=== PATIENT | female | born 1990 | race Caucasian/White ===

== ENCOUNTER 2017-07-02 18:00 | Emergency (ER) | payer OTHER ==
[2017-07-02 18:10] VITALS: BP 134/84; PULSE 84; TEMP 98.9; BMI 26.6
[2017-07-02] MEDS ORDERED: DEXAMETHASONE SOD PHOSPHATE 10 MG/1 ML VIAL IVPUSH ONE (18:35)
--- NOTE | 2017-07-02 18:35 | PDOC ---
History of Present Illness <Fany Waite - Last Filed: 07/02/17 18:33> - General History Source: Patient Exam Limitations: No Limitations - History of Present Illness Initial Comments: 07/02/17 18:37 The patient is a 26 year old female, with no significant past medical history, who presents to the emergency department with, 4 days of a sore throat, mild nonproductive cough, and fever. She reports pain upon coughing, losing her voice, and having a hard time eating due to her symptoms. She reports a fever Tmax of 99.5 degrees F secondary to her symptoms. She states her baby had similar symptoms. She denies recent chills, headache or dizziness. She denies recent nausea, vomit , diarrhea or constipation. She denies recent dysuria, frequency, urgency or hematuria. She denies recent chest pain or shortness of breath. Allergies: NKA Past surgical history: None reported. Social history: Nonsmoker. Denies EtOH use and recreational drug use. <Leonora Emerson - Last Filed: 07/02/17 18:44> - General Chief Complaint: Sore Throat Stated Complaint: SORE THROAT Time Seen by Provider: 07/02/17 18:07 Past History - Past Medical History Asthma: No Cancer: No Cardiac Disorders: No COPD: No Diabetes: No HTN: No Seizures: No Thyroid Disease: No Other medical history: DENIES - Suicide/Smoking/Psychosocial Hx Smoking History: Never smoked Have you smoked in the past 12 months: No Information on smoking cessation initiated: No Hx Alcohol Use: No Drug/Substance Use Hx: No Substance Use Type: None Hx Substance Use Treatment: No <Fany Waite - Last Filed: 07/02/17 18:33> <Leonora Emerson - Last Filed: 07/02/17 18:44> - Past Medical History Allergies/Adverse Reactions: Allergies Allergy/AdvReac Type Severity Reaction Status Date / Time No Known Allergies Allergy Verified 07/02/17 18:04 Home Medications: Ambulatory Orders Acetaminophen [Tylenol] 325 mg PO ASDIR 07/02/17 Amox-Tr/K Cl [Augmentin - 875Mg Tablet] 1 tab PO BID #20 tablet 07/02/17 Review of Systems - Review of Systems Able to Perform ROS?: Yes Comments:: 07/02/17 18:43 GENERAL/CONSTITUTIONAL: + Fever. No chills. No weakness. HEAD, EYES, EARS, NOSE AND THROAT: + Sore throat. No change in vision. No ear pain or discharge. CARDIOVASCULAR: No chest pain or shortness of breath. RESPIRATORY: + Mild cough. No wheezing, or hemoptysis. GASTROINTESTINAL: No nausea, vomiting, diarrhea or constipation. GENITOURINARY: No dysuria, frequency, or change in urination. MUSCULOSKELETAL: No joint or muscle swelling or pain. No neck or back pain. SKIN: No rash NEUROLOGIC: No headache, vertigo, loss of consciousness, or change in strength/ sensation. ENDOCRINE: No increased thirst. No abnormal weight change. HEMATOLOGIC/LYMPHATIC: No anemia, easy bleeding, or history of blood clots. ALLERGIC/IMMUNOLOGIC: No hives or skin allergy. Is the patient limited [place] proficient: Yes All Other Systems: Reviewed and Negative <Leonora Emerson - Last Filed: 07/02/17 18:44> *Physical Exam - Vital Signs Last Vital Signs Temp Pulse Resp BP Pulse Ox 98.9 F 84 18 134/84 97 07/02/17 18:00 07/02/17 18:00 07/02/17 18:00 07/02/17 18:00 07/02/17 18:00 - Physical Exam Comments: GENERAL: Awake, alert, and fully oriented, in no acute distress HEAD: No signs of trauma EYES: PERRLA, EOMI, sclera anicteric, conjunctiva clear ENT: Auricles normal inspection, hearing grossly normal, nares patent, oropharynx erythematous without exudates. Moist mucosa NECK: Normal ROM, supple, +anterior cervical lymphadenopathy, JVD, or masses LUNGS: Breath sounds equal, clear to auscultation bilaterally. No wheezes, and no crackles HEART: Regular rate and rhythm, normal S1 and S2, no murmurs, rubs or gallops ABDOMEN: Soft, nontender, normoactive bowel sounds. No guarding, no rebound. No masses EXTREMITIES: Normal range of motion, no edema. No clubbing or cyanosis. No cords, erythema, or tenderness NEUROLOGICAL: Cranial nerves II through XII grossly intact. Normal speech, normal gait SKIN: Warm, Dry, normal turgor, no rashes or lesions noted. <Fany Waite - Last Filed: 07/02/17 18:33> - Vital Signs Last Vital Signs Temp Pulse Resp BP Pulse Ox 98.9 F 84 18 134/84 97 07/02/17 18:00 07/02/17 18:00 07/02/17 18:00 07/02/17 18:00 07/02/17 18:00 <Leonora Emerson - Last Filed: 07/02/17 18:44> Medical Decision Making - Medical Decision Making 07/02/17 18:31 Pt with fever, lymphadenopathy. She coughed once due to throat irritation. Small child home with similar symptoms. Will treat empirically for strep. <Fany Waite - Last Filed: 07/02/17 18:33> *DC/Admit/Observation/Transfer - Discharge Dispostion Admit: No <Fany Waite - Last Filed: 07/02/17 18:33> - Attestations Scribe Attestion: 07/02/17 18:44 Documentation prepared by Leonora Emerson, acting as medical research tech for Fany Waite MD. <Leonora Emerson - Last Filed: 07/02/17 18:44> Diagnosis at time of Disposition: Pharyngitis Qualifiers: Pharyngitis/tonsillitis etiology: unspecified etiology Qualified Code(s): J02.9 - Acute pharyngitis, unspecified - Discharge Dispostion Disposition: HOME Condition at time of disposition: Stable - Prescriptions Prescriptions: Amox-Tr/K Cl [Augmentin - 875Mg Tablet] 1 tab PO BID #20 tablet - Patient Instructions Printed Discharge Instructions: DI for Pharyngitis/Tonsillopharyngitis -- Adult
[2017-07-02] MEDS ORDERED: DEXAMETHASONE SOD PHOSPHATE 10 MG/1 ML VIAL ONE (18:52)
== END 2017-07-02 19:09 | disposition home or self-care (01) ==
LOC: FER 18:00
PROC: 3E033GC Introduction of Other Therapeutic Substance into Peripheral Vein, Percutaneous Approach (ICD-10-PCS; principal; 2017-07-02)
DX: J02.9 Acute pharyngitis, unspecified (principal)
CPT/HCPCS: 84703; 99282-25

== ENCOUNTER 2017-07-10 13:43 | Emergency (ER) | payer OTHER ==
[2017-07-10 13:50] VITALS: BP 119/85; PULSE 98; TEMP 99; BMI 26.6
[2017-07-10] MEDS ORDERED: METOCLOPRAMIDE HCL INJECTION 10 MG/2 ML VIAL IVPUSH ONE (14:00)
[2017-07-10] MEDS ORDERED: FAMOTIDINE IV 20 MG/12 ML VIAL IVPUSH SCH (14:00)
[2017-07-10] MEDS ORDERED: ACETAMINOPHEN 1000 MG/100 ML VIAL (NON FORMULARY) IVPB ONE (14:00)
[2017-07-10] MEDS ORDERED: SODIUM CHLORIDE 1,000 ML IV STA (14:00)
--- NOTE | 2017-07-10 14:05 | PDOC ---
History of Present Illness - History of Present Illness Initial Comments: 07/10/17 14:15 26 year old female, with no significant past medical history, who presents to the emergency room complaining of 2 days of nausea, nonbloody nonbilious vomiting, diarrhea, lightheadedness, and a headache. The patient states that she felt lightheaded and dizzy after multiple episodes of persistent vomiting and diarrhea and decided to come into the emergency room. Denies fever, chills. She denies sick contact and recent travel. Denies LOC. Denies neck pain. Allergies: NKA <Blanca Brewer - Last Filed: 07/10/17 14:15> - General History Source: Patient, Old Records Exam Limitations: No Limitations <Alexis Sandoval - Last Filed: 07/10/17 15:17> - General Chief Complaint: Diarrhea Stated Complaint: nausea/diarrhea Time Seen by Provider: 07/10/17 13:45 Past History <Blanca Brewer - Last Filed: 07/10/17 14:15> - Past Medical History Asthma: No Cancer: No Cardiac Disorders: No COPD: No Diabetes: No HTN: No Seizures: No Thyroid Disease: No Other medical history: denies - Suicide/Smoking/Psychosocial Hx Smoking History: Never smoked Have you smoked in the past 12 months: No Hx Alcohol Use: No Drug/Substance Use Hx: No Substance Use Type: None Hx Substance Use Treatment: No <Alexis Sandoval - Last Filed: 07/10/17 15:17> - Past Medical History Allergies/Adverse Reactions: Allergies Allergy/AdvReac Type Severity Reaction Status Date / Time No Known Allergies Allergy Verified 07/10/17 13:45 Home Medications: Ambulatory Orders Famotidine [Pepcid] 20 mg PO BID PRN #14 tablet 07/10/17 Mag Hydrox/Al Hydrox/Simeth [Mylanta Suspension -] 30 ml PO Q6H PRN #1 bottle Metoclopramide HCl [Reglan] 10 mg PO Q8H PRN #12 tablet 07/10/17 Naproxen [Naprosyn -] 500 mg PO BID PRN #20 tablet 07/10/17 Review of Systems - Review of Systems Comments:: 07/10/17 14:08 GENERAL/CONSTITUTIONAL: No fever or chills. No weakness. HEAD, EYES, EARS, NOSE AND THROAT: No change in vision. No ear pain or discharge. No sore throat. CARDIOVASCULAR: No chest pain or shortness of breath. RESPIRATORY: No cough, wheezing, or hemoptysis. GASTROINTESTINAL: +nausea, vomiting,diarrhea. No constipation. GENITOURINARY: No dysuria, frequency, or change in urination. MUSCULOSKELETAL: No joint or muscle swelling or pain. No neck or back pain. SKIN: No rash NEUROLOGIC: +lightheadedness, headache. No vertigo, loss of consciousness, or change in strength/sensation. ENDOCRINE: No increased thirst. No abnormal weight change. HEMATOLOGIC/LYMPHATIC: No anemia, easy bleeding, or history of blood clots. ALLERGIC/IMMUNOLOGIC: No hives or skin allergy. <Blanca Brewer - Last Filed: 07/10/17 14:15> *Physical Exam - Vital Signs Last Vital Signs Temp Pulse Resp BP Pulse Ox 99.0 F 98 H 16 119/85 100 07/10/17 13:45 07/10/17 13:45 07/10/17 13:45 07/10/17 13:45 07/10/17 13:45 - Physical Exam Comments: 07/10/17 14:07 GENERAL: Awake, alert, and fully oriented, in no acute distress HEAD: No signs of trauma EYES: PERRLA, EOMI, sclera anicteric, conjunctiva clear ENT: Auricles normal inspection, hearing grossly normal, nares patent, oropharynx clear without exudates. Moist mucosa NECK: Normal ROM, supple, no lymphadenopathy, JVD, or masses LUNGS: Breath sounds equal, clear to auscultation bilaterally. No wheezes, and no crackles HEART: Regular rate and rhythm, normal S1 and S2, no murmurs, rubs or gallops ABDOMEN: Soft, nontender, normoactive bowel sounds. No guarding, no rebound. No masses EXTREMITIES: Normal range of motion, no edema. No clubbing or cyanosis. No cords, erythema, or tenderness NEUROLOGICAL: CN II-XII intact, 5/5 strength upper and lower extremities, Sensation intact throughout all extremities, No pronator drift, Gait Normal, Speech Normal SKIN: Warm, Dry, normal turgor, no rashes or lesions noted. <Blanca Brewer - Last Filed: 07/10/17 14:15> - Vital Signs Last Vital Signs Temp Pulse Resp BP Pulse Ox 99.0 F 98 H 16 119/85 100 07/10/17 13:45 07/10/17 13:45 07/10/17 13:45 07/10/17 13:45 07/10/17 13:45 <Alexis Sandoval - Last Filed: 07/10/17 15:17> ED Treatment Course - LABORATORY CBC & Chemistry Diagram: 07/10/17 14:00 07/10/17 14:00 <Alexis Sandoval - Last Filed: 07/10/17 15:17> Medical Decision Making - Medical Decision Making 07/10/17 14:03 A portion of this note was documented by scribe services under my direction. I have reviewed the details of the note, within reason, and agree with the documentation with the following case summary and management plan written by me. Patient treated in the ED. Nursing notes are reviewed and incorporated into the medical decision-making. Vital signs reviewed. Peripheral IV access obtained by the nurse, laboratory studies are drawn and sent, reviewed and interpreted by myself. Vital Signs Temp Pulse Resp BP Pulse Ox 99.0 F 98 H 16 119/85 100 07/10/17 13:45 07/10/17 13:45 07/10/17 13:45 07/10/17 13:45 07/10/17 13:45 26-year-old female with no past medical history presents with 2 days of several episodes of nausea, vomiting, diarrhea, lightheadedness, tension-like headache. Patient reported that the symptoms all started at the same time and has been persistent. Denies fevers or chills or sick contacts. Because the patient started feel lightheaded and dizzy in addition to these other symptoms, patient came to the ER. Denies worse headache of life or neck stiffness. As of note, patient was here approximately 2 weeks ago for sore throat which she was empirically treated with antibiotics. She reported that her sore throat is improved drastically. I suspect the patient's constellation symptoms is likely secondary to viral gastroenteritis. We'll give some IV medications and IV fluids as well as test the blood work and urine. Reassess 07/10/17 15:13 CBC, BMP 07/10/17 14:00 07/10/17 14:00 CMP Sodium 134 mmol/L (136-145) L 07/10/17 14:00 Potassium 3.7 mmol/L (3.5-5.1) 07/10/17 14:00 Chloride 102 mmol/L (98-107) 07/10/17 14:00 Carbon Dioxide 25 mmol/L (22-28) 07/10/17 14:00 Anion Gap 7 (8-16) L 07/10/17 14:00 BUN 7 mg/dl (7-18) 07/10/17 14:00 Creatinine 0.6 mg/dl (0.6-1.3) 07/10/17 14:00 Creat Clearance w eGFR > 60 (>60) 07/10/17 14:00 Random Glucose 94 mg/dl (74-106) 07/10/17 14:00 Calcium 9.2 mg/dl (8.4-10.2) 07/10/17 14:00 Total Bilirubin 1.2 mg/dl (0.2-1.0) H 07/10/17 14:00 AST 19 U/L (10-42) 07/10/17 14:00 ALT 14 U/L (10-40) 07/10/17 14:00 Alkaline Phosphatase 48 U/L (32-92) 07/10/17 14:00 Total Protein 7.1 g/dl (6.4-8.3) 07/10/17 14:00 Albumin 4.2 g/dl (3.5-5.0) 07/10/17 14:00 Lipase 21 U/L (22-51) L 07/10/17 14:00 Urine Test Results Urine Color Yellow 07/10/17 14:11 Urine Appearance Clear 07/10/17 14:11 Urine pH 6.5 (4.5-8) 07/10/17 14:11 Ur Specific [place] 1.010 (1.005-1.025) 07/10/17 14:11 Urine Protein Negative (NEGATIVE) 07/10/17 14:11 Urine Glucose (UA) Negative (NEGATIVE) 07/10/17 14:11 Urine Ketones Trace (NEGATIVE) 07/10/17 14:11 Urine Blood Negative (NEGATIVE) 07/10/17 14:11 Urine Nitrite Negative (NEGATIVE) 07/10/17 14:11 Urine Bilirubin Negative (NEGATIVE) 07/10/17 14:11 Ur Leukocyte Esterase Negative (NEGATIVE) 07/10/17 14:11 Urine test negative. The patient reports feeling significantly better. Likely viral syndrome. Supportive care. Pt's headache has improved drastically. Return precautions given including abdominal pain, persistent vomiting, uncontrollable headaches, and inability to tolerate PO I discussed the physical exam findings, ancillary test results and final diagnoses with the patient. I answered all of the patient's questions. The patient was satisfied with the care received and felt comfortable with the discharge plan and treatment plan. The patient will call their primary care physician within 24 hours to arrange follow-up and will return to the Emergency Department with any new, persistant or worsening symptoms. <Alexis Sandoval - Last Filed: 07/10/17 15:17> *DC/Admit/Observation/Transfer - Attestations Scribe Attestion: 07/10/17 14:07 Documentation prepared by JAVON Torres, acting as medical service technician for Alexis Sandoval MD. <Blanca Brewer - Last Filed: 07/10/17 14:15> - Discharge Dispostion Admit: No <Alexis Sandoval - Last Filed: 07/10/17 15:17> Diagnosis at time of Disposition: Gastroenteritis - Discharge Dispostion Disposition: HOME Condition at time of disposition: Improved - Prescriptions Prescriptions: Famotidine [Pepcid] 20 mg PO BID PRN #14 tablet PRN Reason: Abdominal Pain Mag Hydrox/Al Hydrox/Simeth [Mylanta Suspension -] 30 ml PO Q6H PRN #1 bottle PRN Reason: Abdominal Pain Metoclopramide HCl [Reglan] 10 mg PO Q8H PRN #12 tablet PRN Reason: Headache/Nausea Naproxen [Naprosyn -] 500 mg PO BID PRN #20 tablet PRN Reason: Headache/Pain - Patient Instructions Printed Discharge Instructions: DI for Viral Gastroenteritis -- Adult, DI for Headache Additional Instructions: Drink plenty of fluids and rest. It may take several days before your symptoms improve. Take the medications as prescribed as needed for symptom control. If you notice that you are having uncontrollable headaches, abdominal pain, or persistent vomiting, please return to the ER for further evaluation.
[2017-07-10 14:31] LABS: PH,URINE 6.5 (4.5-8); URINE APPEARANCE Clear; URINE BILIRUBIN Negative (NEGATIVE); URINE BLOOD Negative (NEGATIVE); URINE COLOR YELLOW; URINE GLUCOSE (UA) Negative (NEGATIVE); URINE KETONE Trace (NEGATIVE); URINE LEUK ESTERASE Negative (NEGATIVE); URINE NITRITE Negative (NEGATIVE); URINE PROTEIN Negative (NEGATIVE); URINE UROBILINOGEN 0.2 (0.2-1.0)
[2017-07-10 14:34] LABS: BASOPHIL 0.3 % (0-2.0); EOSINOPHIL 5.1 % (0-4.5); MCHC 34.5 g/dl (32.0-36.0); MEAN CELL VOLUME 89.8 fl (80-96); MEAN PLT VOLUME 8.3 fl (7.5-11.1); NEUTROPHILS 73.9 % (42.8-82.8); PLATELET COUNT 192 K/MM3 (134-434); RDW 11.5 % (11.6-15.6); WHITE BLOOD COUNT 6.4 K/mm3 (4.0-10.8)
[2017-07-10 14:49] LABS: ALBUMIN 4.2 g/dl (3.5-5.0); ALK PHOS 48 U/L (32-92); ANION GAP 7 (8-16); BILIRUBIN,TOTAL 1.2 mg/dl (0.2-1.0); CALCIUM 9.2 mg/dl (8.4-10.2); CO2 25 mmol/L (22-28); CREATININE 0.6 mg/dl (0.6-1.3); GLUCOSE,RANDOM 94 mg/dl (74-106); SGOT/AST 19 U/L (10-42); SGPT/ALT 14 U/L (10-40); TOT PROT 7.1 g/dl (6.4-8.3)
[2017-07-10] MEDS ORDERED: KETOROLAC TROMETHAMINE 30 MG/1 ML VIAL IVPUSH ONE (14:52)
[2017-07-10] MEDS ORDERED: KETOROLAC TROMETHAMINE 30 MG/1 ML VIAL ONE (15:06)
== END 2017-07-10 15:58 | disposition home or self-care (01) ==
LOC: FER 13:43
PROC: 3E033NZ Introduction of Analgesics, Hypnotics, Sedatives into Peripheral Vein, Percutaneous Approach (ICD-10-PCS; principal; 2017-07-10)
PROC: 3E033GC Introduction of Other Therapeutic Substance into Peripheral Vein, Percutaneous Approach (ICD-10-PCS; 2017-07-10)
PROC: 3E0333Z Introduction of Anti-inflammatory into Peripheral Vein, Percutaneous Approach (ICD-10-PCS; 2017-07-10)
PROC: 3E0337Z Introduction of Electrolytic and Water Balance Substance into Peripheral Vein, Percutaneous Approach (ICD-10-PCS; 2017-07-10)
DX: K52.9 Noninfective gastroenteritis and colitis, unspecified (principal)
CPT/HCPCS: 36415; 80053; 81003; 83690; 84703; 85025; 99283-25

== ENCOUNTER 2017-09-22 12:13 | Emergency (ER) | payer OTHER ==
[2017-09-22 12:30] VITALS: BP 146/95; PULSE 87; TEMP 97.7; BMI 26.6
--- NOTE | 2017-09-22 12:50 | PDOC ---
History of Present Illness - General Chief Complaint: Oral Ulcers Stated Complaint: PIMPLES ON TONGUE Time Seen by Provider: 09/22/17 12:18 History Source: Patient Exam Limitations: No Limitations - History of Present Illness Initial Comments: 09/22/17 12:37 27 year old F c/ no pmh p/w "bumps" on tongue x 3 days. Denies sick contacts or recent travels. Started to notice small amount of bumps on tongue that had increased in size and became more painful. Able to tolerate PO. Denies neck stiffness, fevers, chills. Past History - Past Medical History Allergies/Adverse Reactions: Allergies Allergy/AdvReac Type Severity Reaction Status Date / Time No Known Allergies Allergy Verified 09/22/17 12:15 Home Medications: Ambulatory Orders NK [No Known Home Medication] 09/22/17 Asthma: No Cancer: No Cardiac Disorders: No COPD: No Diabetes: No HTN: No Seizures: No Thyroid Disease: No Other medical history: DENIES - Suicide/Smoking/Psychosocial Hx Smoking History: Never smoked Have you smoked in the past 12 months: No Information on smoking cessation initiated: No Hx Alcohol Use: No Drug/Substance Use Hx: No Substance Use Type: None Hx Substance Use Treatment: No Review of Systems - Review of Systems Able to Perform ROS?: Yes Comments:: 09/22/17 12:39 GENERAL/CONSTITUTIONAL: No fever, weakness. HEAD, EYES, EARS, NOSE AND THROAT: + tongue pain CARDIOVASCULAR: No chest pain or shortness of breath. RESPIRATORY: No cough, wheezing, or hemoptysis. GASTROINTESTINAL: No abdominal pain, nausea, vomiting, diarrhea, or decreased PO intolerance. GENITOURINARY: No dysuria, frequency, or change in urination. MUSCULOSKELETAL: No joint or muscle swelling or pain. No neck or back pain. SKIN: No rash NEUROLOGIC: No headache, vertigo, loss of consciousness, or change in strength/ sensation. ENDOCRINE: No increased thirst. No abnormal weight change. HEMATOLOGIC/LYMPHATIC: No anemia, easy bleeding, or history of blood clots. ALLERGIC/IMMUNOLOGIC: No hives or skin allergy. *Physical Exam - Vital Signs Last Vital Signs Temp Pulse Resp BP Pulse Ox 97.7 F 87 20 146/95 99 09/22/17 12:15 09/22/17 12:15 09/22/17 12:15 09/22/17 12:15 09/22/17 12:15 - Physical Exam Comments: 09/22/17 12:39 GENERAL: Awake, alert, and fully oriented, in no acute distress. HEAD: No signs of trauma EYES: PERRLA, EOMI, sclera anicteric, conjunctiva clear ENT: Auricles normal inspection, hearing grossly normal, nares patent, oropharynx clear without exudates. Tongue with findings c/w papillitis. NECK: Normal ROM, supple, EXTREMITIES: Normal range of motion, no edema. No clubbing or cyanosis. No cords, erythema, or tenderness NEUROLOGICAL: Cranial nerves II through XII grossly intact. Normal speech, normal gait SKIN: Warm, Dry, normal turgor, no rashes or lesions noted. Medical Decision Making - Medical Decision Making 09/22/17 12:40 Vital Signs Temp Pulse Resp BP Pulse Ox 97.7 F 87 20 146/95 99 09/22/17 12:15 09/22/17 12:15 09/22/17 12:15 09/22/17 12:15 09/22/17 12:15 The patient is nontoxic appearing. This appears to be likely lingual papillitis. NSAIDS, supportive care. I instructed the patient to follow up with ENT if symptoms persist. *DC/Admit/Observation/Transfer Diagnosis at time of Disposition: Transient lingual papillitis - Discharge Dispostion Disposition: HOME Condition at time of disposition: Stable Admit: No - Referrals Referrals: Kwaku Benavides MD [Staff Physician] - - Patient Instructions Additional Instructions: You have something called: papillitis. This may take several days before it gets better. You may take motrin and/or tylenol over the counter as directed. If it persists for more than a week, please make an appointment with an ENT specialist. - Post Discharge Activity
== END 2017-09-22 12:55 | disposition home or self-care (01) ==
LOC: FER 12:13
DX: K14.0 Glossitis (principal)
CPT/HCPCS: 99281-25

== ENCOUNTER 2018-06-29 13:05 | Emergency (ER) | payer OTHER ==
[2018-06-29 13:12] VITALS: BP 130/90; PULSE 89; TEMP 98.6; BMI 27.6
[2018-06-29] MEDS ORDERED: IBUPROFEN 600 MG TABLET (FP) PO ONE ×2 (13:25→13:49)
--- NOTE | 2018-06-29 14:12 | PDOC ---
History of Present Illness - General Chief Complaint: Respiratory Stated Complaint: COUGH & COLD SX, HEADACHE History Source: Patient, Unavil. due to pt. cond. - History of Present Illness Initial Comments: 06/29/18 14:16 27 yo F with no pmhx here c/o cough nasal congestion, fever and body aches , headache. started 2 days ago. fever at night to 101. no no/v no abd pain. no urinary complaints. no sick contacts. no travel . no rash. did not have flu shot this year. no other complaints. took tylenol this am, mild relief. Past History - Past Medical History Allergies/Adverse Reactions: Allergies Allergy/AdvReac Type Severity Reaction Status Date / Time No Known Allergies Allergy Verified 06/29/18 13:06 Home Medications: Ambulatory Orders Acetaminophen [Tylenol -] 650 mg PO ASDIR 06/29/18 Ibuprofen [Motrin -] 600 mg PO TID PRN #90 tablet MDD 3 06/29/18 Asthma: No Cancer: No Cardiac Disorders: No COPD: No Diabetes: No HTN: No Seizures: No Thyroid Disease: No Other medical history: pt denies - Suicide/Smoking/Psychosocial Hx Smoking History: Never smoked Have you smoked in the past 12 months: No Information on smoking cessation initiated: No Hx Alcohol Use: No Drug/Substance Use Hx: No Substance Use Type: None Hx Substance Use Treatment: No Review of Systems - Review of Systems Constitutional: Yes: Chills, Fever Respiratory: Yes: Cough. No: Orthopnea, Productive cough Cardiac (ROS): No: Chest Pain Musculoskeletal: Yes: Joint Pain, Muscle Pain Integumentary: No: Rash Neurological: Yes: Headache All Other Systems: Reviewed and Negative *Physical Exam - Vital Signs Last Vital Signs Temp Pulse Resp BP Pulse Ox 98.6 F 89 18 130/90 98 06/29/18 13:05 06/29/18 13:05 06/29/18 13:05 06/29/18 13:05 06/29/18 13:05 - Physical Exam Comments: 06/29/18 14:18 awake alert lungs clear bilaterally heart rrr no mrg abd soft nt nd. skin warm and dry. no rash. ext wwp. nuero alert oriented x 3. nose clear rhinorrhea. throat post. cobblestoning. no exudate. ED Treatment Course - RADIOLOGY Radiology Studies Ordered: Category Date Time Status CHEST PA & LAT [RAD] Stat Radiology 06/29/18 13:25 Completed - Medications Given in the ED: ED Medications Discontinued Medications Generic Name Dose Route Start Last Admin Trade Name Gerald PRN Reason Stop Dose Admin Ibuprofen 600 mg 06/29/18 13:25 06/29/18 13:52 Motrin - PO 06/29/18 13:26 600 mg ONCE ONE Administration Medical Decision Making - Medical Decision Making 06/29/18 14:18 pt wtih lidia viral syndrome, flu. plan cxr r/o pna, pain control, sxs treatment. motrin for headache, myalgia. cxr negative for pneumonia. recommend decongestant, fluids, rest and motrin. fu pcp. *DC/Admit/Observation/Transfer Diagnosis at time of Disposition: Viral syndrome, Influenza - Discharge Dispostion Disposition: HOME Condition at time of disposition: Improved - Prescriptions Prescriptions: Ibuprofen [Motrin -] 600 mg PO TID PRN #90 tablet MDD 3 PRN Reason: Pain Or Fever - Referrals - Patient Instructions Printed Discharge Instructions: Common Cold, Influenza Additional Instructions: you can take ibuprofen 600 mg every 8 hrs as needed for pain or fever. you should not go to work until without fever for 48 hrs. drink plenty of fluids, get plenty of rest. return for shortness of breath, vomiting, chest pain or any concerns. follow up wiht your primary doctor as well within one weekcall to schedule. your chest xray was negative for pneumonia. - Post Discharge Activity
== END 2018-06-29 14:30 | disposition home or self-care (01) ==
LOC: FER 13:05
DX: B34.9 Viral infection, unspecified (principal); J11.1 Influenza due to unidentified influenza virus with other respiratory manifestations
CPT/HCPCS: 71046-TC-FY; 99282-25

== ENCOUNTER 2019-05-21 11:33 | Emergency (ER) | payer OTHER ==
[2019-05-21 11:56] VITALS: BP 128/81; PULSE 108; TEMP 98.6; BMI 26.2
[2019-05-21 14:25] LABS: EPI CELLS 13.3 /HPF (0-5/HPF); HYALINE CASTS 44 /lpf (0-8); URINE APPEARANCE TURBID; URINE BACTERIA 0.3 /hpf (NEGATIVE); URINE BILIRUBIN 1+ (NEGATIVE); URINE COLOR RED; URINE GLUCOSE (UA) NEGATIVE (NEGATIVE); URINE KETONE NEGATIVE (NEGATIVE); URINE LEUK ESTERASE 2+ (NEGATIVE); URINE NITRITE POSITIVE (NEGATIVE); URINE PROTEIN 3+ (NEGATIVE); URINE RBC 7566 /hpf (0-4); URINE UROBILINOGEN 0.2 mg/dL (0.2-1.0); URINE WBC 11 /hpf (0-5)
[2019-05-21 15:11] LABS: BASO % 0.8 % (0-2.0); EOS % 0.6 % (0-4.5); HEMATOCRIT 38.7 % (32.4-45.2); HEMOGLOBIN 13.1 GM/dL (10.7-15.3); LYMPH % 25.9 % (8-40); MCH 30.8 pg (25.7-33.7); MCHC 33.9 g/dl (32.0-36.0); MEAN PLT VOLUME 8.1 fl (7.5-11.1); MONO % 6.6 % (3.8-10.2); NEUT % 66.1 % (42.8-82.8); PLATELET COUNT 211 K/MM3 (134-434); RBC 4.25 M/mm3 (3.60-5.2); RDW 12.9 % (11.6-15.6); WHITE BLOOD COUNT 5.8 K/mm3 (4.0-10.0)
--- NOTE | 2019-05-21 15:20 | PDOC ---
History of Present Illness - General Chief Complaint: Vaginal Bleeding Stated Complaint: SENT BY PCP/ BLEEDING Time Seen by Provider: 05/21/19 14:38 History Source: Patient Exam Limitations: Clinical Condition - History of Present Illness Initial Comments: 05/21/19 15:16 Patient -0-1-1 LMP March 18 presented with complaint of vaginal bleeding which has been worsening since yesterday status post Cytotec for missed . Patient was seen by [facility] for test and had a failed which she was given Cytotec 2 days ago but reports started bleeding yesterday soaking 4 pads a day which was not completely soaked. Patient called [facility] today who advised her to come to the ED. Patient reports cramping lower abdominal pain denies nausea, vomiting, fever or chills. Patient reports she was told by her [facility] he will come down to see patient in the ED. Denies any other symptoms. Patient scheduled for D&C in 2 days Is this a multiple visit Asthma Patient?: No Past History - Past Medical History Allergies/Adverse Reactions: Allergies Allergy/AdvReac Type Severity Reaction Status Date / Time No Known Allergies Allergy Verified 05/21/19 11:56 Home Medications: Ambulatory Orders Acetaminophen [Tylenol -] 650 mg PO ASDIR 06/29/18 Ibuprofen [Motrin -] 600 mg PO TID PRN #90 tablet MDD 3 06/29/18 Asthma: No Cancer: No Cardiac Disorders: No COPD: No Diabetes: No HTN: No Seizures: No Thyroid Disease: No - Reproductive History Is Patient Now?: Yes (#): 2 Para: 1 - Psycho Social/Smoking Cessation Hx Smoking History: Never smoked Have you smoked in the past 12 months: No Hx Alcohol Use: No Drug/Substance Use Hx: No Substance Use Type: None Hx Substance Use Treatment: No Review of Systems - Review of Systems Able to Perform ROS?: Yes Is the patient limited Ukrainian proficient: No Constitutional: No: Fever, Malaise, Weakness HEENTM: No: Symptoms Reported Respiratory: No: Symptoms reported Cardiac (ROS): No: Symptoms Reported ABD/GI: Yes: Symptoms Reported, Abdominal cramping (suprapubic pain). No: Nausea, Vomiting : Yes: Symptoms Reported, See HPI, Other (vaginal bleeding). No: Discharge, Frequency, Urgency Musculoskeletal: No: Symptoms Reported Integumentary: No: Symptoms Reported All Other Systems: Reviewed and Negative *Physical Exam - Vital Signs Last Vital Signs Temp Pulse Resp BP Pulse Ox 98.6 F 108 H 18 128/81 99 05/21/19 11:53 05/21/19 11:53 05/21/19 11:53 05/21/19 11:53 05/21/19 11:53 - Physical Exam General Appearance: Yes: Nourished, Appropriately Dressed. No: Apparent Distress HEENT: positive: Normal ENT Inspection, Normal Voice Neck: positive: Supple Respiratory/Chest: positive: Lungs Clear, Normal Breath Sounds. negative: Respiratory Distress, Accessory Muscle Use Cardiovascular: positive: Regular Rhythm, Regular Rate Female Pelvic Exam: positive: normal external exam, cervical os closed, vaginal bleeding (small amount of blood in vaginal vault. no active bleeding or blood pooling). negative: adnexal tenderness Gastrointestinal/Abdominal: positive: Normal Bowel Sounds, Flat. negative: Tender Musculoskeletal: positive: Normal Inspection Extremity: positive: Normal Inspection Integumentary: positive: Normal Color Neurologic: positive: Fully Oriented, Alert, Normal Response ED Treatment Course - LABORATORY CBC & Chemistry Diagram: 05/21/19 14:50 05/21/19 14:50 - ADDITIONAL ORDERS Additional order review: Laboratory Results 05/21/19 05/21/19 14:10 14:10 Urine Color Red Urine Appearance Turbid Urine pH 6.0 Ur Specific Reva 1.011 Urine Protein 3+ H Urine Glucose (UA) Negative Urine Ketones Negative Urine Blood 3+ H Urine Nitrite Positive H Urine Bilirubin 1+ H Urine Urobilinogen 0.2 Ur Leukocyte Esterase 2+ H Urine WBC (Auto) 11 Urine RBC (Auto) 7566 Urine Casts (Auto) 44 U Pathogenic Cast Auto None seen U Epithel Cells (Auto) 13.3 U Sm Round Cell (Auto) None seen Urine Bacteria (Auto) 0.3 Urine HCG, Qual Positive Medical Decision Making - Medical Decision Making 05/21/19 15:18 Patient -0-1-1 LMP March 18 presented with complaint of vaginal bleeding which has been worsening since yesterday status post Cytotec for missed . Patient was seen by [facility] for test and had a failed which she was given Cytotec 2 days ago but reports started bleeding yesterday soaking 4 pads a day which was not completely soaked. Patient called [facility] today who advised her to come to the ED. Patient reports cramping lower abdominal pain denies nausea, vomiting, fever or chills. Patient reports she was told by her [facility] he will come down to see patient in the ED. Denies any other symptoms. Patient scheduled for D&C in 2 days Exam significant for small amount of blood in vaginal bulging no vault with no blood pooling. Cervical os closed. No CMT. CBC, CMP, beta-hCG , type and type and screen lab ordered. Patient symptoms likely . Patient Carole will be contacted for follow-up care as patient reported she had ultrasound done in the [facility] office yesterday 05/21/19 16:43 CBC, chemistry level unremarkable. Beta-hCG 2735.Blood type A+.Patient asymptomatic now and with no active vaginal bleeding. Called and spoke to patient [facility] who saw patient yesterday and have ultrasound done which showed missed AB with intrauterine and patient is being scheduled for D&C in 2 days. [facility] advised patient to keep appointment in 2 days for D&C and follow- up in outpatient. Patient stable for discharge Discharge - Discharge Information Problems reviewed: Yes Clinical Impression/Diagnosis: Missed , Vaginal bleeding Condition: Stable Disposition: HOME - Admission No - Follow up/Referral Referrals: Tonie Jean MD [Primary Care Provider] - Gen Christensen MD [Staff Physician] - - Patient Discharge Instructions Patient Printed Discharge Instructions: DI for Miscarriage Additional Instructions: Follow-up with your [facility] as scheduled in 2 days for D&C procedure as discussed. Come back to ED if worsening bleeding - Post Discharge Activity
[2019-05-21 15:58] LABS: ALBUMIN 4.6 g/dl (3.4-5.0); BILIRUBIN,TOTAL 0.6 mg/dL (0.2-1); BLOOD UREA NITROGEN 7.3 mg/dL (7-18); CALCIUM 9.1 mg/dL (8.5-10.1); CREATININE 0.7 mg/dL (0.55-1.3); TOT PROT 7.8 g/dl (6.4-8.2)
== END 2019-05-21 17:17 | disposition home or self-care (01) ==
LOC: JER 11:33
DX: O02.1 Missed abortion (principal); N93.9 Abnormal uterine and vaginal bleeding, unspecified
CPT/HCPCS: 36415; 80053; 81003; 84702; 84703; 85025; 86850; 86900; 86901; 87086; 99283-25

== ENCOUNTER 2019-05-23 12:29 | Day surgery (SDC) | payer OTHER ==
[2019-05-22 16:44] VITALS: BMI 26.2
[2019-05-23] MEDS ORDERED: PROPOFOL 20 ML ONE ×2 (13:07)
[2019-05-23] MEDS ORDERED: MIDAZOLAM HCL 2 MG/2 ML SINGLE DOSE VIAL ONE (13:07)
--- NOTE | 2019-05-23 13:27 | HP ---
History & Physical Update - Physical Physical: No Change - Assessment Assessment: No Change - Plan Plan: No Change (H&P reviwed ,no , for suction D&Cchanges)
[2019-05-23] MEDS ORDERED: KETOROLAC TROMETHAMINE 30 MG/1 ML VIAL ONE (13:56)
[2019-05-23] MEDS ORDERED: LIDOCAINE HCL/PF 2% SDV 5ML VIAL ONE (13:56)
[2019-05-23] MEDS ORDERED: DEXAMETHASONE SOD PHOSPHATE 4 MG/1 ML VIAL ONE (13:57)
[2019-05-23 14:59] VITALS: TEMP 97.5
[2019-05-23] MEDS ORDERED: ONDANSETRON 4 MG/2 ML VIAL IVPUSH PRN (15:02)
[2019-05-23] MEDS ORDERED: LACTATED RINGERS SOLUTION 1,000 ML IV SCH (15:15)
[2019-05-23] MEDS ORDERED: ONDANSETRON 4 MG/2 ML VIAL ONE (15:23)
[2019-05-23] MEDS ORDERED: ONDANSETRON 4 MG/2 ML VIAL IVPUSH ONE (15:25)
[2019-05-23] MEDS ORDERED: ACETAMINOPHEN 325 MG TABLET (FP) PO ONE (15:30)
[2019-05-23] MEDS ORDERED: ACETAMINOPHEN 325 MG TABLET (FP) PO PRN (15:32)
[2019-05-23 17:00] VITALS: BP 115/66; PULSE 80
--- NOTE | 2019-05-27 15:51 | OP ---
DATE OF OPERATION: 05/23/2019 PREOPERATIVE DIAGNOSIS: Incomplete . POSTOPERATIVE DIAGNOSIS: Incomplete . PROCEDURE: Suction dilation and curettage. SURGEON: Gen Christensen MD ANESTHESIA: General. ESTIMATED BLOOD LOSS: 150 mL. OPERATION: Patient was taken to the operating room, under adequate general anesthesia, and placed in the dorsal lithotomy position. The examination under anesthesia revealed external genitalia to be normal. Vagina had blood in the vault. Cervix was slightly opened with clot at the os. Uterus was prominent. Adnexa had no masses palpable. The vagina, cervix, and perineum were prepped with betadine. Anterior lip of the cervix was grasped with a single-toothed tenaculum. Uterine cavity was sounded to 9 cm. The cervix was dilated and suction curette was inserted into the uterine cavity and the contents suctioned. Patient tolerated the procedure well and left the OR in good condition. GEN CHRISTENSEN M.D. /[id number]
--- NOTE | 2019-05-28 17:11 | PATH ---
Surgical Pathology Report Patient Name: LICHA CRUM [facility]. Rec. #: [id number] /Age/Gender: 1990 (Age: 28) / F Account: [id number] Location: [facility] SURGICAL Taken: 05/23/2019 Received: 05/24/2019 Reported: 05/28/2019 Physicians: Gen Christensen M.D. Specimen(s) Received PRODUCTS OF CONCEPTION Clinical History Missed Final Diagnosis PRODUCTS OF CONCEPTION: FEW DEGENERATIVE CHORIONIC VILLI, TROPHOBLASTS, AND DECIDUAL TISSUE, CONSISTENT WITH PRODUCTS OF CONCEPTION. SEPARATE SECRETORY TYPE ENDOMETRIUM. Electronically Signed Apryl Murphy M.D. Gross Description Received in formalin labeled "products of conception," is a 6.0 x 5.0 x 0.3 cm aggregate of serra-brown soft tissue fragments. No definite villous tissue or somatic tissue is identified. A special service representative portion is submitted in 6 cassettes. /05/24/2019 saudi/05/24/2019
== END 2019-05-23 16:55 | disposition home or self-care (01) ==
LOC: JASU-SURG 12:29
PROVIDERS: ATTEND Obstetrics & Gynecology
PROC: 10D17ZZ Extraction of Products of Conception, Retained, Via Natural or Artificial Opening (ICD-10-PCS; principal; 2019-05-23 14:00)
DX: O02.1 Missed abortion (principal)
CPT/HCPCS: 88305-TC; 94760

== ENCOUNTER 2020-12-24 04:43 | Day surgery (SDC) | payer OTHER ==
[2020-12-23 12:44] VITALS: BMI 26.7
[2020-12-24] MEDS ORDERED: LIDOCAINE HCL/PF 2% SDV 5ML VIAL ONE (14:39)
[2020-12-24] MEDS ORDERED: MIDAZOLAM HCL 2 MG/2 ML SINGLE DOSE VIAL ONE (14:40)
[2020-12-24] MEDS ORDERED: PROPOFOL 20 ML ONE (14:40)
[2020-12-24] MEDS ORDERED: ceFAZolin SODIUM 1 GM VIAL ONE (14:48)
[2020-12-24] MEDS ORDERED: ceFAZolin SODIUM 1 GM VIAL IVPB ONE (14:48)
[2020-12-24] MEDS ORDERED: DEXAMETHASONE SOD PHOSPHATE 4 MG/1 ML VIAL ONE (14:55)
[2020-12-24] MEDS ORDERED: KETOROLAC TROMETHAMINE 30 MG/1 ML VIAL ONE (14:55)
[2020-12-24] MEDS ORDERED: IBUPROFEN 600 MG TABLET (FP) PO PRN (15:03)
[2020-12-24] MEDS ORDERED: IBUPROFEN 800 MG/8 ML IJ IVPB PRN (15:03)
[2020-12-24] MEDS ORDERED: ONDANSETRON 4 MG/2 ML VIAL IVPUSH PRN (15:03)
[2020-12-24] MEDS ORDERED: oxyCODONE HCL 5 MG TABLET PO PRN (15:03)
[2020-12-24] MEDS ORDERED: ELECTROLYTE-148 SOLN 1,000 ML IV SCH (15:15)
[2020-12-24 17:41] VITALS: BP 109/72; PULSE 82; TEMP 97.9
== END 2020-12-24 17:15 | disposition home or self-care (01) ==
LOC: JASU-SURG 04:43
PROVIDERS: ATTEND Obstetrics & Gynecology
PROC: 10D07Z8 Extraction of Products of Conception, Other, Via Natural or Artificial Opening (ICD-10-PCS; principal; 2020-12-24 15:00)
DX: O02.1 Missed abortion (principal)
CPT/HCPCS: 88305-TC; 94760

== ENCOUNTER 2021-07-22 16:32 | Emergency (ER) | payer OTHER ==
[2021-07-22 17:30] VITALS: BP 103/68; PULSE 94; TEMP 97.9; BMI 29.2
== END 2021-07-22 19:20 | disposition home or self-care (01) ==
LOC: JERFT 16:32 → JER 16:32 → JERFT 19:20
DX: M79.89 Other specified soft tissue disorders (principal)
CPT/HCPCS: 93970-TC; 99283-25

== ENCOUNTER 2021-11-22 13:42 | Inpatient (IN) | payer OTHER ==
[2021-11-22 14:30] VITALS: BMI 34.0
[2021-11-22] MEDS ORDERED: DINOPROSTONE 10 MG VAGINAL SUPPOSITORY VG ONE (15:16)
[2021-11-22] MEDS ORDERED: ELECTROLYTE-148 SOLN 1,000 ML IV SCH ×2 (15:30)
[2021-11-22 17:17] LABS: INR 0.91 (0.83-1.09); PROTHROMBIN TIME (PATIENT) 10.4 SEC (9.7-13.0)
[2021-11-22 17:19] LABS: ACTIVATED PTT 23.6 SECONDS (25.2-36.5)
[2021-11-22 17:27] LABS: BASO % 0.8 % (0-2.0); EOS % 0.2 % (0-4.5); HEMOGLOBIN 8.4 GM/dL (10.7-15.3); LYMPH % 18.4 % (8-40); MCH 23.9 pg (25.7-33.7); MCHC 32.4 g/dl (32.0-36.0); MEAN CELL VOLUME 73.7 fl (80-96); MEAN PLT VOLUME 8.8 fl (7.5-11.1); MONO % 8.5 % (3.8-10.2); NEUT % 72.1 % (42.8-82.8); RBC 3.53 M/mm3 (3.60-5.2); RDW 17.5 % (11.6-15.6); WHITE BLOOD COUNT 8.1 K/mm3 (4.0-10.0)
[2021-11-22 17:53] LABS: CALCIUM 8.3 mg/dL (8.5-10.1)
[2021-11-22 17:54] LABS: BLOOD UREA NITROGEN 6.8 mg/dL (7-18)
[2021-11-22 17:57] LABS: CREATININE 0.5 mg/dL (0.55-1.3)
[2021-11-22 18:00] LABS: PLATELET COUNT 179 10^3/uL (134-434); PLATELET ESTIMATE DECREASED
[2021-11-22 18:36] LABS: HIV INTERPRETATION NEGATIVE (NEGATIVE)
[2021-11-23] MEDS ORDERED: PROMETHAZINE HCL 25 MG/1 ML VIAL ONE (05:43)
[2021-11-23] MEDS ORDERED: BUTORPHANOL TARTRATE 1 MG/ML VIAL ONE (05:43)
[2021-11-23] MEDS ORDERED: OXYTOCIN 30 UNITS in 0.9% NS 30 UNIT/500 ML INFUS.BAG IVPB SCH (08:45)
[2021-11-23] MEDS ORDERED: OXYTOCIN 30 UNITS in 0.9% NS 30 UNIT/500 ML INFUS.BAG IVPB ONE (08:46)
[2021-11-23] MEDS ORDERED: FENTANYL/BUPIVACAINE/NS/PF - PCEA - 50 ML DISP.SYRIN EP ONE (10:45)
[2021-11-23] MEDS ORDERED: BUPIVACAINE HCL/PF 0.25% (2.5MG/ML) 10 ML VIAL ONE (10:47)
[2021-11-23] MEDS ORDERED: NALOXONE HCL 0.4 MG/ML VIAL IVPUSH PRN (11:17)
[2021-11-23] MEDS ORDERED: FENTANYL/BUPIVACAINE/NS/PF - PCEA - 50 ML DISP.SYRIN EP SCH (11:30)
[2021-11-23] MEDS ORDERED: OXYTOCIN 20 UNITS in 0.9% NS 20 UNIT/1,000 ML INFUS.BAG IV ONE (13:44)
[2021-11-23] MEDS ORDERED: METHYLERGONOVINE MALEATE 0.2 MG/1 ML AMP IM ONE (14:30)
[2021-11-23] MEDS: IBUPROFEN 600 MG TABLET (FP) PO PRN (15:00)
[2021-11-23] MEDS ORDERED: IBUPROFEN 600 MG TABLET (FP) PO ONE (15:01)
[2021-11-23] MEDS ORDERED: ACETAMINOPHEN 325 MG TABLET (FP) PO PRN (15:12)
[2021-11-23] MEDS ORDERED: BISACODYL 10 MG SUPP.RECT RC PRN (15:12)
[2021-11-23] MEDS ORDERED: BENZOCAINE 20% 57 GM BOTTLE TP PRN (15:12)
[2021-11-23] MEDS ORDERED: oxyCODONE HCL 5 MG TABLET PO PRN (15:12)
[2021-11-23] MEDS ORDERED: WITCH HAZEL 50% (TUCKS) 40 PAD/JAR PAD TP PRN (15:12)
[2021-11-23] MEDS ORDERED: BENZOCAINE 28 GM HEMORRHOIDAL OINTMENT TP PRN (15:12)
[2021-11-23] MEDS ORDERED: OXYTOCIN 20 UNITS in 0.9% NS 20 UNIT/1,000 ML INFUS.BAG IV SCH (15:15)
[2021-11-23 16:11] LABS: CORD BASE EXCESS -5.9 mmol/L (0-2); CORD HCO3 19.9 mmHg (20-29); CORD PCO2 40.3 mmHg (30-78); CORD pH 7.312 (7.14-7.44)
[2021-11-23 16:21] LABS: CORD BASE EXCESS -4.3 mmol/L (0-2); CORD HCO3 24.1 mmHg (20-29); CORD PCO2 56.9 mmHg (30-78); CORD pH 7.244 (7.14-7.44)
[2021-11-23] MEDS ORDERED: METHYLERGONOVINE MALEATE 0.2 MG/1 ML AMP IM PRN (18:30)
[2021-11-24 09:55] LABS: BASO % 0.6 % (0-2.0); EOS % 0.5 % (0-4.5); HEMATOCRIT 28.5 % (32.4-45.2); HEMOGLOBIN 9.2 GM/dL (10.7-15.3); LYMPH % 13.5 % (8-40); MCH 23.9 pg (25.7-33.7); MCHC 32.1 g/dl (32.0-36.0); MEAN CELL VOLUME 74.3 fl (80-96); MEAN PLT VOLUME 8.9 fl (7.5-11.1); MONO % 4.8 % (3.8-10.2); NEUT % 80.6 % (42.8-82.8); PLATELET COUNT 215 10^3/uL (134-434); RBC 3.83 M/mm3 (3.60-5.2); RDW 17.6 % (11.6-15.6); WHITE BLOOD COUNT 7.9 K/mm3 (4.0-10.0)
[2021-11-24] MEDS: IBUPROFEN 600 MG TABLET (FP) PO PRN (12:13)
[2021-11-24] MEDS ORDERED: SENNOSIDES/DOCUSATE COMBO (SENNA PLUS) TABLET (UD) PO PRN (22:00)
[2021-11-25 10:34] VITALS: BP 120/77; PULSE 83; TEMP 98.3
== END 2021-11-25 13:55 | disposition home or self-care (01) | DRG 807 ==
LOC: JLDR 13:42 → J3W 11-23 17:16
PROVIDERS: ADMIT Obstetrics & Gynecology; ATTEND Obstetrics & Gynecology
PROC: 3E0P7VZ Introduction of Hormone into Female Reproductive, Via Natural or Artificial Opening (ICD-10-PCS; 2021-11-22)
PROC: 10E0XZZ Delivery of Products of Conception, External Approach (ICD-10-PCS; principal; 2021-11-23)
PROC: 0W8NXZZ Division of Female Perineum, External Approach (ICD-10-PCS; 2021-11-23)
DX: O48.0 Post-term pregnancy (principal); Z37.0 Single live birth; Z3A.40 40 weeks gestation of pregnancy
CPT/HCPCS: 36415; 36600; 59409; 80048; 82803; 85025; 85610; 85730; 86780; 86850; 86900; 86901; 86922; 87389; C9803-CS; U0003; U0005